=== PATIENT | male | born 1975 | race Caucasian/White ===

== ENCOUNTER 2025-02-24 10:30 | Emergency (ER) | payer OTHER, SELFPAY ==
[2025-02-24 10:31] VITALS: BMI 40.2
[2025-02-24 10:35] VITALS: BP 134/91
[2025-02-24] MEDS: TORADOL 30 MG IM (11:56)
[2025-02-24 12:00] VITALS: BP 134/89
--- NOTE | 2025-02-24 12:22 | ED.GENMED ---
History of Present Illness
General
Chief Complaint: Generalized Pain
Source: patient
Exam Limitations: none
Time Seen by Provider: 02/24/25 11:23
Nursing documentation reviewed up to this point in time: agreed with
History of Present Illness
History of Present Illness:
49-year-old male with past medical history of alcohol abuse, seizures who presents to the emergency department for evaluation of rib pain. Patient reports that yesterday he was intoxicated and had multiple falls from standing. He says he landed on
his ribs and has had left rib pain as well as mid back pain since. He is not sure whether he hit his head or lost consciousness. He denies significant headache or neck pain. He denies any significant abdominal pain. Denies any pain in the
extremities. Denies numbness or weakness in extremities. He is not on a blood thinner. He does note that he has been increasingly depressed recently and requested to speak with someone about his mental health; he denies being actively suicidal.
Of note, patient is currently homeless.
Past History
Past History
ED Past Medical History: Other (ADHD, alcohol and drug use disorder)
ED Past Surgical History: None
Social History
Tobacco: Former smoker
Alcohol: Binge drinker
Personal:
Living: alone
Review of Systems
Review of Systems
All Other Systems: ROS reviewed and negative except as documented in HPI and ROS
Respiratory: Denies trouble breathing
Cardiac: Reports chest pain (Rib pain)
ABD/GI: Denies abdominal pain, nausea or vomiting
: Denies flank pain
Musculoskeletal: Reports back pain; Denies neck pain
Neurological: Denies dizzy or headache
Psychiatric: Reports depression; Denies suicidal
Phy Exam
Physical Exam
Physical Exam:
General: Awake, alert, oriented x3; unkempt but in no acute distress
Head: Normocephalic, atraumatic
Eyes: Conjunctiva normal, EOMI, pupils equal round reactive to light bilaterally
Throat: Airway intact, handling secretions
Neck: Trachea midline, no cervical spine tenderness, full range of motion in cervical spine
Lungs: Clear to auscultation bilaterally, no wheezing, rales, rhonchi
Heart: Regular rate and rhythm, no murmurs, gallops, or rubs; patient has left chest wall tenderness but no crepitus, no bruising
Abd: Soft, non distended, nontender, no bruising
Back: No signs of trauma the back or flank, some mild left posterior rib tenderness and some midthoracic tenderness in the paraspinal region but no lumbar tenderness
Neuro: Cranial nerves grossly intact, speech fluid, no gross motor or sensory deficits
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
Extremities: Atraumatic, moving all extremities without pain, warm and well-perfused
Psych: 'Depressed' mood, normal affect
Scores
Heart Failure Risk
Heart Failure Risk Score: Not Applicable
Heart Score for Chest Pain Patients
STEMI patient?: Not applicable
Withdrawal Assessment of Alcohol
Withdrawal Assessment Completed?: Not applicable
Course
Orders/Labs/Results
Orders:
Orders
02/24/25 11:32
CT Chest W/o Iv Contrast Urgent
Comment:
Reason For Exam: left chest wall and mid back pain
02/24/25 11:33
CT Head W/o Iv Contrast Urgent
Comment:
Reason For Exam: multiple falls while intoxicated
Crisis Consult Routine
Reason for Consult: depression
Ketorolac [Toradol] 30 mg IM NOW STA
02/24/25 12:24
Electrocardiogram (*1) Urgent
Reason for Study: Chest Pain
EKG- Treatment ONCE
Vital Signs
Initial and Last Documented VS:
Initial Vital Signs
Temp Pulse Resp BP Pulse Ox
36.7 C 100 16 134/91 98
02/24/25 10:35 02/24/25 10:35 02/24/25 10:35 02/24/25 10:35 02/24/25 10:35
Last Documented Vital Signs
Temp Pulse Resp BP Pulse Ox
36.7 C 92 20 134/89 99
02/24/25 10:35 02/24/25 12:00 02/24/25 12:00 02/24/25 12:00 02/24/25 12:00
MDM/Problems Addressed
Differential Diagnosis Includes:
Rib fracture, hemothorax, pneumothorax, bruised ribs/chest wall contusion, vertebral fracture
MDM/Problems Addressed:
49-year-old male presents for evaluation after falls while intoxicated yesterday complaining of left-sided chest wall/rib pain. Vitals and exam as above. Will plan to check CT of the head given multiple falls we will intoxicated. Will check CT of
the chest to evaluate for any signs of rib fractures, pneumothorax/hemothorax as well as to evaluate thoracic vertebrae. Will check screening EKG although chest wall pain convincingly reproducible to palpation. Treat pain. Patient did express
some concerns about his mental health although he is not acutely suicidal�case was discussed with our fuller brush worker to assess and provide resources. He does have a history of alcohol use�not yet ready for rehab/cessation.
CT head negative for any acute abnormalities. CT chest shows fractures left ribs subacute although suspect based on repeat falls yesterday he may have exacerbated this issue or have some acute component. No pneumothorax or hemothorax. No other
acute posttraumatic abnormalities. Pain well-controlled here patient sleeping comfortably without any distress. Stable vital signs throughout ED visit. He did speak with our fuller brush worker and was provided resources for mental health assistance.
Stable for discharge.
Chronic conditions affecting care:
Alcohol use
*Radiology
Radiology exam reviewed: radiology read reviewed
*Pulse Oximetry
Patient hypoxic: no
*EKG
Interpreted by ED Provider?: Yes
Heart Rate: 80
Rate: normal
Rhythm: sinus
[place]: left axis deviation
Interval: normal interval
QRS Pattern: wide non-specific
Ischemia: no ischemia
*Critical Care Note
Total Time (30-74mins, 75-104mins- exclusive of procedures): Not Applicable
Data Reviewed
Review of Other/Old Records Reveals: Records
Source: patient and records
Patient Management
Social determinants of health affecting care: Living situation and Substance abuse (Alcohol abuse)
ED Attending Note
-
Portions of this chart may have been created with voice recognition software.� Occasional wrong word or��sound alike� substitutions may have occurred due to the inherent limitations of voice recognition software.
Discharge Plan
Departure
Patient Disposition: Home (Routine Discharge)
Date of Disposition: 02/24/25
Time of Disposition: 14:28
Patient with high blood pressure during this ER visit?: No
Discharge Problem:
Fall, Fracture of rib
Instructions: Rib fracture or bruised rib - ED discharge instructions
Prescriptions:
New
lidocaine 5 % adhesive patch,medicated
1 patch topical DAILY Qty: 15 0RF
ibuprofen 400 mg tablet
400 mg PO Q6H PRN (Reason: Pain) Qty: 30 0RF
No Action
duloxetine [Cymbalta] 60 mg Capsule,Delayed Release(Dr/Ec)
60 mg PO DAILY
hydroxyzine HCl 25 mg tablet
25 mg PO QID PRN (Reason: itching/anxiety) Qty: 30 0RF
Wellbutrin
1 tab PO DAILY
Referrals:
Rabia Norwood CRNP [Family Provider, General] - Follow up in 1 week
Activity Restrictions/Additional Instructions:
Thank you for visiting the Emergency Department at [facility].
1. Please schedule a follow up appointment as directed. Call first thing tomorrow morning to make an appointment.
2. If indicated, please take your medications as instructed and indicated on discharge paperwork.
3. If any of your symptoms do not improve, or persist, or become more severe within 6-12 hours, please return to the emergency department for further care.
4. Please return to the emergency department if you develop a headache, neck pain/stiffness, fever greater than 100.4F, chest pain, shortness of breath, persistent nausea, vomiting, slurred speech, difficulty walking, numbness/tingling, weakness,
signs of infection or any other symptoms that are worrisome to you.
Please call [phone] if you have any questions.
Interventions
Interventions:
*Risk Screen - Suicide Last Done: 02/24/25 10:35
*General Assessment Last Done: 02/24/25 11:11
*Neglect/Abuse Screening Last Done: 02/24/25 10:35
*ED- Fall Risk Assessment Last Done: 02/24/25 11:11
Discharge Date and Time
Print Language: MONGOLIAN
[2025-02-24 14:43] VITALS: BP 138/78
== END 2025-02-24 14:43 | disposition home or self-care (01) ==
LOC: EMR 10:30
PROVIDERS: EMERGENCY PHYSICIAN Emergency Medicine; FAMILY PHYSICIAN Nurse Practitioner Adult Health
DX: S22.42XA Multiple fractures of ribs, left side, initial encounter for closed fracture (principal); W19.XXXA Unspecified fall, initial encounter; R29.6 Repeated falls; Z87.891 Personal history of nicotine dependence; Z59.00 Homelessness unspecified
CPT/HCPCS: 99285; 96372; 70450; 71250; 93005

== ENCOUNTER 2025-03-17 09:38 | Inpatient (IN) | payer OTHER, SELFPAY ==
[2025-03-17] VITALS (10 sets, daily range): BP systolic 115–148; BP diastolic 65–106; BMI 40.8; BMI 39.9
[2025-03-17] MEDS: ATIVAN 2 MG IV ×3 (03:10→07:59)
[2025-03-17 03:29] LABS: Hematocrit 44.8 % (39.0-52.0); Hemoglobin 14.9 g/dL (13.0-18.0); Mean Corp Hgb Conc. 33.3 g/dL (33.0-37.0); Mean Corpuscular Volume 84.8 fL (80.0-94.0); Nucleated Red Blood Cells % 0 % (-); Platelet Count 420 10^3/uL (130-400); Red Cell Dist. Width 14.2 % (11.5-14.5)
[2025-03-17 03:53] LABS: ALT (SGPT) 48 U/L (0-50); AST (SGOT) 42 U/L (17-59); Albumin 4.5 g/dl (3.5-5.0); Alkaline Phosphatase 82 U/L (38-126); Blood Urea Nitrogen 15 mg/dl (9-20); Calcium 9.8 mg/dl (8.4-10.2); Carbon Dioxide 24 mmol/L (22-30); Chloride 107 mmol/L (98-107); Estimated Creatinine Clearance > 125 ml/min; Glucose 101 mg/dl (70-99); Potassium 4.6 mmol/L (3.5-5.1); Sodium 141 mmol/L (135-145); Total Protein 7.8 g/dl (6.3-8.2); eGFR > 60.00
[2025-03-17] MEDS: ZOFRAN 4 MG IV (05:02)
[2025-03-17] MEDS: ATIVAN 1 MG IV (06:25)
--- NOTE | 2025-03-17 06:25 | ED.GENMED ---
History of Present Illness
General
Chief Complaint: Alcohol Problem
Source: patient
Time Seen by Provider: 03/17/25 05:27
Nursing documentation reviewed up to this point in time: agreed with
History of Present Illness
History of Present Illness:
Note:
CHIEF COMPLAINT(S)
Request for assistance with alcohol use.
HISTORY OF PRESENT ILLNESS
The patient is a 49-year-old male who presents with a request for assistance with alcohol use. He reports last drinking alcohol approximately 30 hours prior to arrival. The patient describes a history of significant alcohol consumption, which he has
engaged in for several years. He reports experiencing seizures during withdrawal, indicating a history of alcohol withdrawal seizures. The patient mentioned previously receiving treatment for alcohol use at the [facility]. He is currently
experiencing symptoms that he associates with withdrawal and expresses a need for medication, specifically lorazepam (Ativan), to manage his current condition. He has been provided with a banana bag to replenish nutrients.
SOCIAL DETERMINANTS AFFECTING HEALTH
The patient is a and is currently on disability. 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 The patient has indicated a desire to return to work once he manages his alcohol use.
SOCIAL HISTORY
The patient reports smoking of a non-specified substance occasionally. He does not provide specifics regarding frequency or type of substance used.
MEDICATIONS
The patient reports taking medications for depression and post-traumatic stress disorder (PTSD). Specific medications were not named in the conversation.
PLAN
1. Administer lorazepam (Ativan) as needed to manage withdrawal symptoms.
2. Provide a banana bag to address nutritional deficiencies.
3. Arrange for the patient to be admitted for management of alcohol withdrawal.
4. Plan for follow-up and continued treatment at the [facility].
DIFFERENTIAL DIAGNOSIS
The Differential Diagnosis includes, in no particular order and is not limited to:
1. Alcohol withdrawal syndrome
2. Seizure disorder secondary to alcohol withdrawal
3. Alcohol use disorder
4. Depression
5. Post-traumatic stress disorder (PTSD)
6. Anxiety disorder
7. Nutritional deficiencies
8. Neurological symptoms secondary to alcohol use
9. Sleep disturbances related to alcohol use
10. Generalized anxiety disorder
Disposition:
SUMMARY OF ENCOUNTER
The patient is a 49-year-old male who presented with a request for assistance with alcohol withdrawal, including a history of withdrawal seizures. He last consumed a pint of vodka approximately 30 hours prior to arrival. Due to historical
alcohol withdrawal seizures, he was seen by emergency services with a request to be admitted for observation and management. The patient has previously been treated for alcohol use at the [facility]. During the visit, he was administered lorazepam
(Ativan) to manage withdrawal symptoms and prevent seizures. He did not experience any seizures while in the emergency department and maintained stability.
DISPOSITION
The patient will be admitted to the hospital for ongoing management and observation of alcohol withdrawal.
ASSESSMENT
The patient is experiencing alcohol withdrawal syndrome with a history of withdrawal seizures.
EMERGENCY TREATMENTS ADMINISTERED
Lorazepam (Ativan) was administered for withdrawal symptoms.
PLAN
1. Administer lorazepam (Ativan) as needed for withdrawal management.
2. Admit to the hospital for observation and management of alcohol withdrawal.
3. Coordination for follow-up care with [facility].
MEDICATION RECONCILIATION
1. Lorazepam (Ativan) was administered during the encounter for management of withdrawal symptoms.
MEDICAL DECISION MAKING
-Complexity of Data Reviewed: Chronic conditions affecting care include alcohol use disorder, seizure disorder secondary to alcohol withdrawal, depression, and PTSD. Differential diagnosis includes alcohol withdrawal syndrome, seizure disorder
secondary to alcohol withdrawal, alcohol use disorder, depression, PTSD, anxiety disorder, nutritional deficiencies, neurological symptoms secondary to alcohol use, sleep disturbances related to alcohol use, and generalized anxiety disorder.
-Data:
Category 1:
The attending team attempted to coordinate a hospital transfer to the [facility] for continuity of care during the holiday weekend but was unable due to timing.
Category 3:
Discussion of management with emergency services and hospital services regarding admission for alcohol withdrawal management.
-Risk: Admission was determined due for the management of withdrawal symptoms and prevention of seizures, with lorazepam administration indicating a need for close monitoring and specialized care due to potential morbidity associated with alcohol
withdrawal seizures.
DIAGNOSIS
1. Alcohol withdrawal syndrome - ICD-10 F10.239
2. Seizure disorder secondary to alcohol withdrawal - ICD-10 G40.509
3. Alcohol use disorder, severe - ICD-10 F10.20
Past History
Past History
ED Past Medical History: Other (ADHD, alcohol and drug use disorder)
ED Past Surgical History: None
Social History
Tobacco: Former smoker
Alcohol: Binge drinker
Personal:
Living: alone
Phy Exam
General Physical Exam
General Presentation: well appearing and no apparent distress
General Skin: warm and dry
General Habitus: normal
General Mental: alert
General Hydration: appears well hydrated
ENT Exam
ENT Exam: EOMI, pharynx normal, neck supple and normocephalic
Eye Exam
Eye Exam: PERRL, cornea clear and conjunctiva normal
Cardiovascular Exam
Cardiovascular Exam: regular rate/rhythm, no edema, no murmur and normal peripheral pulses
Pulmonary Exam
Pulmonary Exam: lungs clear, no respiratory distress, no rales, no crackles, no rhonchi, no stridor, no wheezing and no cough
Gastrointestinal Exam
Gastrointestinal Exam: normal bowel sounds, non tender, soft, no organomegaly, no pulsatile mass and non distended
Neurological Exam
Neurological Exam: alert, oriented x3, no motor deficits, speech normal and other (Slight resting tremor)
Musculoskeletal Exam
Musculoskeletal Exam: full ROM and no edema
Skin Exam
Skin Exam: normal color, warm/dry, no rash and no petechia
Psychiatric Exam
Psychiatric Exam: normal mood/affect
Scores
Withdrawal Assessment of Alcohol
Withdrawal Assessment Completed?: Yes
Nausea and Vomiting: Mild nausea with no vomiting
Tactile Disturbances: Mild itching, pins and needles, burning or numbness
Tremor: Not visible, but can be felt fingertip to fingertip
Auditory Disturbances: Not present
Paroxysmal Sweats: Beads of sweat obvious on forehead
Visual Disturbances: Not present
Anxiety: Mild anxiety
Headache, Fullness in Head: Not present
Agitation: Moderately fidgety and restless
Orientation and clouding of sensorium: Oriented and can do serial additions
Total CIWA Score: 13
Alcohol Withdrawal Medication Recommendation: Equal to MSAS Score 5-7. Lorazepam 1mg IV or PO NOW & re-assess q2hrs
Course
Orders/Labs/Results
Orders:
Orders
03/17/25 03:06
Alcohol Urgent
Complete Blood Count/With Diff Urgent
Comprehensive Metabolic Panel Urgent
Magnesium Urgent
Comment: ADD ON
Phosphorus Urgent
Comment: ADD ON
03/17/25 03:09
Lorazepam [Ativan] 2 mg .ROUTE .STK-MED ONE
03/17/25 03:10
Lorazepam [Ativan] 2 mg IV NOW STA
03/17/25 04:58
Ondansetron Injectable [Zofran] 4 mg .ROUTE .STK-MED ONE
03/17/25 04:59
Lorazepam [Ativan] 2 mg .ROUTE .STK-MED ONE
03/17/25 05:00
Lorazepam [Ativan] 2 mg IV NOW STA
03/17/25 05:01
Ondansetron Injectable [Zofran] 4 mg IV NOW STA
03/17/25 Breakfast
Regular
At Your Request: Full Participation
Does patient need a safe tray?: No
0.9% Sodium Chloride 1000 ml [Nss] 1,000 ml Mvi, Adult [Multivitamin] 10 ml Thiamine Injection 100 mg IV 250 mls/hr
03/17/25 06:25
Lorazepam [Ativan] 1 mg IV NOW STA
03/17/25 06:27
Lorazepam [Ativan] 1 mg IV NOW STA
03/17/25 07:56
Lorazepam [Ativan] 2 mg IV NOW STA
03/17/25 09:12
0.9% Sodium Chloride [Nss (Preservative Free)] See Protocol IV PRN PRN
FOLic ACID [Folvite] 1 mg 0.9% Sodium Chloride 50 ml [Nss] 50 ml IV DAILYPRN
Lorazepam [Ativan] 1 mg PO Q2HPRN PRN
Lorazepam [Ativan] 2 mg IV Q1HPRN PRN
03/17/25 09:13
Case Management Consult Once
Case Management Consult: Other
Comment: Substance abuse counseling
DIETARY IP CONSULT Routine
Reason for Consult: Nutrition support, possible refeeding guidelines
MSAS SCORE As Directed
MSAS Score 0-4: Repeat MSAS every 2 hours until 0-4 for three consecutive assessments, then every 4 hours x 48
hours.
MSAS Score 5-7: For MILD withdrawl symptoms. Repeat MSAS and RASS every 2 hours
MSAS Score 8-11: For MODERATE withdrawal symptoms. Repeat MSAS and RASS every 1 hour. Consider ICU or IMU
level of care.
MSAS Score > 11: For SEVERE withdrawal symptoms. Repeat MSAS and RASS every 1 hour. Notify provider, consider
ICU level of care.
MSAS Additional Instructions: If no improvement or no decrease in score from severe to moderate within 12
hours, consult psychiatry
MSAS Notify Provider: Notify provider if patient requires more than 10 mg of Lorazepam in eight hour period.
03/17/25 09:14
Add On- LAB Urgent
Tests Added?: magnesium,phosphorus
03/17/25 09:15
Admit/Transfer Patient As Directed
Co-Sign Provider:
Level of Care: Inpatient admission
Assign to:: Telemetry
Physician / Group: eric adler
Diagnosis: alcohol withrawal
Reason for Telemetry: Arrhythmia
Date to Stop Telemetry: 03/20/25
Time to Stop Telemetry: 11:00
Reason for Hospitalization: alcohol withrawal
Expected length of stay greater than two midnights?: Yes
ELOS- Estimated Length of Stay in days: 3
I certify the patient meets the requirements for IP care: Yes
PRN Pain Medication Management As Directed
May give lesser potent ordered pain med per pt: Yes
preference::
Protocol:: Medication orders for pain may be administered in a
manner that supports deferring to patient preference
when the pt is:
- Requesting an ordered lesser potent pain medication.
Least to most potent pain medications are defined
as: acetaminophen < NSAID < tramadol < opioids
(morphine, oxycodone, hydromorphone).
- Requesting a lesser dose of the same medication IF
ORDERED.
- Requesting a less intrusive route of administration
if both routes are prescribed by the provider (PO <
IV).
03/17/25 09:16
Code Status As Directed
Resuscitation Status: Full Code
03/17/25 09:18
EKG [Electrocardiogram (*1)] Stat
Reason for Study: QTc Monitoring
03/17/25 09:45
Lorazepam [Ativan] 1 mg PO Q1HPRN PRN
03/17/25 10:00
FOLic ACID [Folvite] 1 mg PO DAILY
03/17/25 11:16
0.9% Sodium Chloride 1000 ml [Nss] 1,000 ml IV 100 mls/hr
Bisacodyl [Dulcolax] 10 mg RECTAL [id number] PRN
Docusate W/Senna [Senokot-S] 1 tablet PO BIDPRN PRN
Duloxetine Delayed Release [Cymbalta Delayed Release] 120 mg PO DAILY
Ondansetron Injectable [Zofran] 4 mg IV Q6HPRN PRN
Pantoprazole [Protonix] 40 mg PO DAILY
Polyethylene Glycol Powder [Miralax] 17 grams PO DAILYPRN PRN
03/17/25 11:16
Activity As Directed
Activity Level: As Tolerated
Vital Signs As Directed
Frequency: Per unit guidelines
Pulse Ox/spot Check [RESP] Routine
Quantity: 1
DX Deep Vein Thrombosis Video Routine
03/17/25 13:15
Phenobarbital Sodium [Phenobarbital] 260 mg 0.9% Sodium Chloride 100 ml [Nss] 100 ml IV ONCE
03/17/25 16:00
Gabapentin [Neurontin] 400 mg PO TID
Thiamine Injection 200 mg IV Q8
03/17/25 18:00
Enoxaparin Sodium [Lovenox] 40 mg SC QPM
03/17/25 22:00
Phenobarbital Sodium [Phenobarbital] 97.5 mg IV TID
03/18/25 07:27
Complete Blood Count/With Diff IN AM
Comprehensive Metabolic Panel IN AM
Magnesium IN AM
Phosphorus IN AM
03/19/25 06:45
Complete Blood Count/With Diff IN AM
Comprehensive Metabolic Panel IN AM
03/19/25 22:00
Phenobarbital [Luminal] 64.8 mg PO TID
03/20/25 06:00
Complete Blood Count/With Diff IN AM
Comprehensive Metabolic Panel IN AM
03/20/25 11:00
DC Protocol for Telemetry ONCE
03/20/25 20:00
Thiamine HCl [Vitamin B1] 100 mg PO BID
03/21/25 06:00
Complete Blood Count/With Diff IN AM
Comprehensive Metabolic Panel IN AM
03/21/25 22:00
Phenobarbital [Luminal] 32.4 mg PO TID
03/22/25 06:00
Complete Blood Count/With Diff IN AM
Comprehensive Metabolic Panel IN AM
03/23/25 06:00
Complete Blood Count/With Diff IN AM
Comprehensive Metabolic Panel IN AM
Abnormal Lab Results
03/17/25
03:06
Plt Count 420 H 10^3/uL
(130-400)
MPV 10.7 H fL
(7.4-10.4)
Absolute Monos (auto) 0.7 H 10^3/uL
(0.1-0.6)
Glucose 101 H mg/dl
(70-99)
Magnesium 1.5 L mg/dl
(1.6-2.3)
03/17/25 03:06
03/17/25 03:06
Vital Signs
Initial and Last Documented VS:
Initial Vital Signs
Temp Pulse Resp BP Pulse Ox
98.3 F 126 20 132/106 94
03/17/25 01:53 03/17/25 01:53 03/17/25 01:53 03/17/25 01:53 03/17/25 01:53
Last Documented Vital Signs
Temp Pulse Resp BP Pulse Ox
97.4 F 68 14 119/74 94
03/19/25 19:26 03/19/25 19:26 03/19/25 19:26 03/19/25 19:26 03/19/25 19:26
*Pulse Oximetry
SaO2: 97
Oxygen Mode of Delivery: Room air
Patient hypoxic: no
*Critical Care Note
Total Time (30-74mins, 75-104mins- exclusive of procedures): Not Applicable
ED Attending Note
-
Portions of this chart may have been created with voice recognition software.� Occasional wrong word or��sound alike� substitutions may have occurred due to the inherent limitations of voice recognition software.
Discharge Plan
Departure
Patient Disposition: Admit
Date of Disposition: 03/17/25
Time of Disposition: 06:27
Admit to: Telemetry
Presentation/result/management discussed w/ accepting MD/DO: Hospitalist
Discharge Problem:
Alcoholism, Alcohol withdrawal
Interventions
Interventions:
*Risk Screen - Suicide Last Done: 03/17/25 01:53
*General Assessment Last Done: 03/17/25 01:53
*Neglect/Abuse Screening Last Done: 03/17/25 01:53
*ED- Fall Risk Assessment Last Done: 03/17/25 01:53
*ED COVID-19 Vaccine History Last Done: 03/17/25 01:53
*Nursing Disposition Last Done: 03/17/25 09:56
ED- Neurological Assessment Last Done: 03/17/25 03:02
ED-Psychological Assessment Last Done: 03/17/25 03:02
Discharge Date and Time
Discharge Date/Time: 03/17/25 11:09
[2025-03-17] MEDS: MULTIVITAMIN 1011 ML IV (06:26)
[2025-03-17] MEDS: MULTIVITAMIN 1011 MG IV (06:26)
--- NOTE | 2025-03-17 09:18 | HPS.HSE ---
Family Physician
-
Family Physician: NOT KNOW UNKNOWN - PT DOES
Chief Complaint
-
Alcohol withdrawal
History of Present Illness
49-year-old male with past medical history of morbid obesity, sleep apnea, depression, history of seizure secondary to alcohol withdrawal came to the hospital with alcohol abuse with withdrawal. Patient has tried alcohol rehab before and was very
helpful. Recently he relapsed few months ago and has been drinking a lot. Last drink was 03/16. Currently denies any chest pain, shortness of breath, abdominal pain, nausea, vomiting, diarrhea, constipation. Does have history of seizure from
alcohol withdrawal however not on any medications.
Medical History
Past Medical History
Past Medical History: Reports Psychiatric (Depression) and Other (History of seizure)
Past Surgical History: Reports None
Social History
Tobacco: Former Smoker
Alcohol: Binge drinker
Family History
Family History: Not pertinent
Allergies / Home Medications
Allergies reflects when Allergies were last updated in [employer].
Home Medications with original date entered in [employer]
Allergy/Medication List:
Allergies
Allergy/AdvReac Type Severity Reaction Status Date / Time
levetiracetam (From [facility]) Allergy Anaphylaxis Verified 03/17/25 01:53
Home Medications
duloxetine 60 mg capsule,delayed release (Cymbalta) 120 mg PO DAILY Neurological Condition 04/12/23
hydroxyzine HCl 25 mg tablet 25 mg PO QID PRN itching/anxiety #30 tabs 04/12/23
gabapentin 400 mg tablet 400 mg PO TID 03/17/25
pantoprazole 40 mg tablet,delayed release (Protonix) 40 mg PO DAILY 03/17/25
Review of Systems
-
History Source: Patient
A 12 point ROS was completed and negative except as noted: Yes
Psych: Reports Anxiety
Physical Exam
Vital Signs
Vital Signs
Temp Pulse Resp BP Pulse Ox
98.1 F 110 22 125/85 96
03/17/25 05:50 03/17/25 07:44 03/17/25 07:44 03/17/25 07:44 03/17/25 07:44
Physical Exam
General: No Apparent Distress and Comfortable
HEENT: Anicteric and Moist mucous membranes
Respiratory: Clear and Non Labored Respirations; No Wheezes
Cardiac: S1/S2, Regular Rhythm and Tachycardia
Breast: Deferred by me
GI: Soft, Non Tender and Non Distended
Genito-urinary: No Mcpherson
Musculoskeletal: No Edema
Neuro: Awake, Alert, Oriented and AO x 3
Psych: Calm and Intact Judgment/Insight
Laboratory Results
-
03/17/25 03:06
03/17/25 03:06
Laboratory Results
Total Bilirubin 0.4 mg/dl (0.2-1.3) 03/17/25 03:06
AST 42 U/L (17-59) 03/17/25 03:06
ALT 48 U/L (0-50) 03/17/25 03:06
Alkaline Phosphatase 82 U/L (38-126) 03/17/25 03:06
Data Reviewed
-
Lab Data: Labs Reviewed by me and Discussed with Patient
Impression/Plan
-
Alcohol withdrawal
Alcohol use with abuse
Start phenobarbital, Ativan as needed per withdrawal protocol
MSAS
Fluids
B cares, agreeable on rehab
Hypomagnesemia
Replete
History of seizure disorder
Not on any antiepileptics
Depression
Cymbalta
hx of GERD
PPI
History of anxiety
DVT prophy
Lovenox
Full code
[2025-03-17 09:48] LABS: Magnesium 1.5 mg/dl (1.6-2.3)
--- NOTE | 2025-03-17 09:55 | EDRN ---
this RN called the receiving unit and notified them that paper report was going to be tubed up
--- NOTE | 2025-03-17 11:11 | CM ---
CM following re: discharge planning.
CM consulted for substance abuse counseling.
Reviewed pt's chart, met with pt.
Pt is a 49 year old male, admitted with primary dx of Alcohol withdrawal syndrome.
Pt reports he has been living on and off in the [facility] in [facility] for the past 2 years, his immediate family lives in [place], has no children. Pt reports he is [employer] , served 5 years, enrolled with [employer] for benefits. Pt
reports he PCP from [facility] and he is getting meds from [facility]. Pt repprts his SSD pays fror his staying in the hotel. Pt admitted to significant h/o alcohol abuse, has been drinking heavily for past years. Drink of choice - vodka and per pt
he has been drinking 1.75 L of vodka daily. Pr stated he realized his alcohol addiction and he decided to go to [facility] in [place], [place] to inpatient residential D&A rehab. Pt reports he met with [employer] new accounts representative last night and she is
working on getting him to [facility] in [place], [place] to inpatient D&A rehab.
[facility] printed information given to the pt and pt confirmed he has a strong desire to get help and will go to inpatient D&A rehab at [facility] in [facility].
PCP and pharmacy - [facility].
D/C plan: Inpatient D&A rehab at [facility] in [facility].
CM will follow to assit pt with discharge to inpatient D&A rehab at [facility] in [place], [place]
[2025-03-17] MEDS: FOLVITE 1 MG PO (11:28)
[2025-03-17] MEDS: ATIVAN 1 MG PO ×3 (11:28→22:03)
[2025-03-17] MEDS: CYMBALTA DELAYED RELEASE 120 MG PO (11:51)
[2025-03-17] MEDS: PROTONIX 40 MG PO (11:51)
[2025-03-17] MEDS: NSS 1000 IV ×2 (11:52→21:39)
[2025-03-17] MEDS: PHENOBARBITAL 104 MG IV (13:25)
[2025-03-17] MEDS: MAGNESIUM SULFATE 50 IV (13:39)
[2025-03-17] MEDS: NEURONTIN 400 MG PO ×2 (16:17→21:22)
[2025-03-17] MEDS: LOVENOX 40 MG SC (16:17)
[2025-03-17] MEDS: THIAMINE INJECTION 200 MG IV (16:18)
[2025-03-17] MEDS: PHENOBARBITAL 97.5 MG IV (21:26)
[2025-03-18] MEDS: THIAMINE INJECTION 200 MG IV ×4 (00:05→23:48)
[2025-03-18 02:53] VITALS: BP 102/65
[2025-03-18] MEDS: ATIVAN 1 MG PO ×5 (06:29→23:53)
[2025-03-18 07:27] VITALS: BP 128/76
[2025-03-18] MEDS: NSS 1000 IV (07:34)
[2025-03-18] MEDS: CYMBALTA DELAYED RELEASE 120 MG PO (07:34)
[2025-03-18] MEDS: NEURONTIN 400 MG PO ×3 (07:34→21:15)
[2025-03-18] MEDS: PROTONIX 40 MG PO (07:34)
[2025-03-18] MEDS: FOLVITE 1 MG PO (07:34)
[2025-03-18] MEDS: PHENOBARBITAL 97.5 MG IV ×3 (07:34→21:18)
[2025-03-18 08:50] LABS: ALT (SGPT) 33 U/L (0-50); AST (SGOT) 30 U/L (17-59); Albumin 3.2 g/dl (3.5-5.0); Alkaline Phosphatase 70 U/L (38-126); Blood Urea Nitrogen 13 mg/dl (9-20); Calcium 8.0 mg/dl (8.4-10.2); Carbon Dioxide 27 mmol/L (22-30); Chloride 110 mmol/L (98-107); Estimated Creatinine Clearance > 125 ml/min; Glucose 87 mg/dl (70-99); Magnesium 2.2 mg/dl (1.6-2.3); Potassium 4.3 mmol/L (3.5-5.1); Sodium 138 mmol/L (135-145); Total Protein 6.0 g/dl (6.3-8.2); eGFR > 60.00
[2025-03-18 08:54] LABS: Hematocrit 39.7 % (39.0-52.0); Hemoglobin 12.7 g/dL (13.0-18.0); Mean Corp Hgb Conc. 32.0 g/dL (33.0-37.0); Mean Corpuscular Volume 87.3 fL (80.0-94.0); Nucleated Red Blood Cells % 0 % (-); Platelet Count 271 10^3/uL (130-400); Red Cell Dist. Width 14.3 % (11.5-14.5)
[2025-03-18] MEDS: TYLENOL 650 MG PO (10:56)
[2025-03-18 11:16] VITALS: BP 116/73
--- NOTE | 2025-03-18 11:58 | W.PN.HOSP.TC ---
Today's Communication/Plan
-
Monitor vital signs see plan
Continue to monitor mental status closely
Monitor MSAS
Continue with phenobarbital
Ativan as needed per alcohol withdrawal score
If symptoms get worse then will need Precedex
Assessment / Plan
Assessment / Plan
General: No Apparent Distress and Comfortable
HEENT: Anicteric and Moist mucous membranes
Respiratory: Clear and Non Labored Respirations; No Wheezes
Cardiac: S1/S2, Regular Rhythm and Tachycardia
Breast: Deferred by me
GI: Soft, Non Tender and Non Distended
Genito-urinary: No Mcpherson
Musculoskeletal: No Edema
Neuro: Awake, Alert, Oriented and AO x 3
Psych: Calm and Intact Judgment/Insight
Alcohol withdrawal
Alcohol use with abuse
cw phenobarbital, Ativan as needed per withdrawal protocol
MSAS; if continues to get worse and has worsening hallucinations concerning for DTs then will start Precedex and will move patient to ICU
Fluids
B cares, agreeable on rehab
Hypomagnesemia
Repleted
History of seizure disorder
Not on any antiepileptics
Abnormal EKG
No prior history of [place], denies any chest pain at this time
Troponin a.m.
If chest pain develops then will need cardiology evaluation inaptient otherwise outpatient is appropriate. Possible stress test outpatient
Depression
Cymbalta
hx of GERD
PPI
History of anxiety
DVT prophy
Lovenox
Full code
Anticipated Discharge: > 48 hours
Subjective/Interval History
-
Date of Service: March 18, 2025
Does report seeing some spots
Objective Data
-
Labs:
Laboratory Results
03/18/25
07:27
WBC 5.2
Hgb 12.7 L
Hct 39.7
Plt Count 271 D
Sodium 138
Potassium 4.3
Chloride 110 H
Carbon Dioxide 27
BUN 13
Creatinine 0.8
Glucose 87
Calcium 8.0 L D
Total Bilirubin 0.4
AST 30
ALT 33
Alkaline Phosphatase 70
Vital Signs:
Vital Signs
Temp Pulse Resp BP Pulse Ox
98.7 F 85 20 116/73 96
03/18/25 11:16 03/18/25 11:16 03/18/25 11:16 03/18/25 11:16 03/18/25 11:16
I&O
03/17/25 03/18/25 03/19/25
06:59 06:59 06:59
Intake Total 540 / 540
Output Total 800 / 800
Balance -260 / -260
[2025-03-18 15:16] VITALS: BP 105/67
[2025-03-18] MEDS: LOVENOX 40 MG SC (17:40)
[2025-03-18 19:34] VITALS: BP 105/64
[2025-03-18 23:30] VITALS: BP 106/67
[2025-03-19] MEDS: NSS 1000 IV ×3 (00:58→14:56)
[2025-03-19] MEDS: ATIVAN 1 MG PO ×6 (03:27→21:18)
[2025-03-19 03:37] VITALS: BP 112/67
[2025-03-19 07:05] LABS: Hematocrit 37.8 % (39.0-52.0); Hemoglobin 12.1 g/dL (13.0-18.0); Mean Corp Hgb Conc. 32.0 g/dL (33.0-37.0); Mean Corpuscular Volume 85.9 fL (80.0-94.0); Nucleated Red Blood Cells % 0 % (-); Platelet Count 263 10^3/uL (130-400); Red Cell Dist. Width 13.8 % (11.5-14.5)
[2025-03-19 07:15] VITALS: BP 144/88
[2025-03-19 07:20] LABS: ALT (SGPT) 27 U/L (0-50); AST (SGOT) 23 U/L (17-59); Albumin 3.1 g/dl (3.5-5.0); Alkaline Phosphatase 71 U/L (38-126); Blood Urea Nitrogen 10 mg/dl (9-20); Calcium 8.3 mg/dl (8.4-10.2); Carbon Dioxide 25 mmol/L (22-30); Chloride 112 mmol/L (98-107); Estimated Creatinine Clearance > 125 ml/min; Glucose 91 mg/dl (70-99); Potassium 4.3 mmol/L (3.5-5.1); Sodium 138 mmol/L (135-145); Total Protein 5.8 g/dl (6.3-8.2); eGFR > 60.00
[2025-03-19] MEDS: THIAMINE INJECTION 200 MG IV ×2 (07:29→14:57)
[2025-03-19] MEDS: FOLVITE 1 MG PO (07:29)
[2025-03-19] MEDS: CYMBALTA DELAYED RELEASE 120 MG PO (07:29)
[2025-03-19] MEDS: PROTONIX 40 MG PO (07:29)
[2025-03-19] MEDS: NEURONTIN 400 MG PO ×3 (07:29→21:18)
[2025-03-19] MEDS: PHENOBARBITAL 97.5 MG IV ×2 (07:29→15:03)
[2025-03-19 07:33] LABS: Troponin I < 0.012 ng/ml
--- NOTE | 2025-03-19 11:53 | W.PN.HOSP.TC ---
Today's Communication/Plan
-
Monitor vital signs and see plan
Continue with phenobarbital, Ativan
Monitor MSAS
Assessment / Plan
Assessment / Plan
General: No Apparent Distress and Comfortable
HEENT: Anicteric and Moist mucous membranes
Respiratory: Clear and Non Labored Respirations; No Wheezes
Cardiac: S1/S2, Regular Rhythm
Breast: Deferred by me
GI: Soft, Non Tender and Non Distended
Genito-urinary: No Mcpherson
Musculoskeletal: No Edema
Neuro: Awake, Alert, Oriented and AO x 3
Psych: Calm and Intact Judgment/Insight
Alcohol withdrawal
Alcohol use with abuse
cw phenobarbital, Ativan as needed per withdrawal protocol
MSAS; if get worse and has worsening hallucinations concerning for DTs then will start Precedex and will move patient to ICU
Fluids
B cares, agreeable on rehab
Hypomagnesemia
Repleted
History of seizure disorder
Not on any antiepileptics
Abnormal EKG
No prior history of [place], denies any chest pain at this time
Trope negative
If chest pain develops then will need cardiology evaluation inaptient otherwise outpatient is appropriate. Possible stress test outpatient
Depression
Cymbalta
hx of GERD
PPI
History of anxiety
DVT prophy
Lovenox
Full code
Anticipated Discharge: 24 - 48 hours
Subjective/Interval History
-
Date of Service: March 19, 2025
Denies pain
Objective Data
-
Labs:
Laboratory Results
03/19/25
06:45
WBC 5.1
Hgb 12.1 L
Hct 37.8 L
Plt Count 263
Sodium 138
Potassium 4.3
Chloride 112 H
Carbon Dioxide 25
BUN 10
Creatinine 0.7
Glucose 91
Calcium 8.3 L
Total Bilirubin 0.3
AST 23
ALT 27
Alkaline Phosphatase 71
Vital Signs:
Vital Signs
Temp Pulse Resp BP Pulse Ox
98.2 F 83 14 144/88 95
03/19/25 07:15 03/19/25 07:15 03/19/25 07:15 03/19/25 07:15 03/19/25 07:15
I&O
03/18/25 03/19/25 03/20/25
06:59 06:59 06:59
Intake Total 540 / 540 720 / 720
Output Total 800 / 800 800 / 800
Balance -260 / -260 -80 / -80
[2025-03-19 12:00] VITALS: BP 143/85
[2025-03-19] MEDS: ATARAX 25 MG PO (13:00)
--- NOTE | 2025-03-19 15:07 | PTCARENOTE ---
patient is saying he feels worse, seeing bugs and spots. MSAS score 8. he says this RN not addressing his withdrawal appropriately and is making him feel no one cares about how he feels. wanted to make sure MD is aware. MD notified and ordered PRN
Atarax. Patient initially refused to take it, stating it does not do anything for him, later agreed and 1 dose given. patient denied having any relief from PRN Ativan PO and Atarax.Called this RN to the room again and said he is thinking about
leaving because he feels he 'isn't a good fit for this hospital'. patient is asking for strong medication that will put him into sleep, 'I want to be knocked out'. This RN educated on MSAS protocol.
[2025-03-19 15:30] VITALS: BP 100/66
[2025-03-19] MEDS: LOVENOX 40 MG SC (17:42)
[2025-03-19 19:26] VITALS: BP 119/74
[2025-03-19] MEDS: LUMINAL 64.8 MG PO (21:18)
[2025-03-20] MEDS: THIAMINE INJECTION 200 MG IV (00:14)
[2025-03-20 00:17] VITALS: BP 122/66
[2025-03-20] MEDS: NSS 1000 IV (01:05)
[2025-03-20] MEDS: ATIVAN 1 MG PO ×2 (01:05→03:55)
[2025-03-20 03:26] VITALS: BP 127/76
--- NOTE | 2025-03-20 05:06 | W.PN.UPDATE ---
Update Note
Progress Note Update
Patient 0x3 wanting to leave AMA now. not delirious, no tremors, no hallucination at this moment. States he only had mild symptoms of withdrawal. Advised rehab, stated he will approach rehab once he is home. Discharge AMA addressed. AMA form signed.
--- NOTE | 2025-03-20 05:23 | PTCARENOTE ---
Patient rang the call [facility] and requested to speak with this nurse. Patient stated that he 'felt a lot better' and 'just had a sudden burst of energy and would like to leave AMA. This nurse asked patient if he would stay for a few more hours, have
breakfast, and speak to the AM provider when they round. Patient refused. Provider notified and at bed side to have patient sign AMA form. This nurse removed patient's IV prior to his departure, VSS. Patient left at approx 5:20 AM.
--- NOTE | 2025-03-20 08:18 | W.DCSUMMARY ---
Discharge Summary
Discharge Data
Date of Admission: 03/17/25
Date of Discharge: 03/20/25
-
Pending Results: Yes
Hospital Course
Discharge diagnosis
Alcohol withdrawal
Hypomagnesemia
49-year-old male with past ministry of depression, anxiety, GERD, seizure disorder, alcohol use with abuse came to the hospital with alcohol withdrawal. Patient was started on phenobarbital along with Ativan per alcohol withdrawal protocol.
Patient also had an abnormal EKG however denied any chest pain. He was instructed to follow-up with cardiology outpatient. On 03/20/2025 patient decided to leave AGAINST MEDICAL ADVICE. Risk was discussed with patient by overnight nurse
practitioner however patient still decided to leave AMA.
Discharge Plan
-
Patient Disposition: Against Medical Advice
Prescriptions:
No Action
duloxetine [Cymbalta] 60 mg Capsule,Delayed Release(Dr/Ec)
120 mg PO DAILY
hydroxyzine HCl 25 mg tablet
25 mg PO QID PRN (Reason: itching/anxiety) Qty: 30 0RF
gabapentin 400 mg Tablet
400 mg PO TID
pantoprazole [Protonix] 40 mg Tablet,Delayed Release (Dr/Ec)
40 mg PO DAILY
Discharge Date and Time
Discharge Date/Time: 03/20/25 06:01
Print Language: OCCITAN
== END 2025-03-20 06:01 | disposition left against medical advice (07) | DRG 894 ==
LOC: 4 WEST ACU 09:38
PROVIDERS: ADMITTING PHYSICIAN Internal Medicine; EMERGENCY PHYSICIAN Student in an Organized Health Care Education/Training Program
DX: F10.239 Alcohol dependence with withdrawal, unspecified (principal); E83.42 Hypomagnesemia; F32.A Depression, unspecified; F41.9 Anxiety disorder, unspecified; K21.9 Gastro-esophageal reflux disease without esophagitis; G40.909 Epilepsy, unspecified, not intractable, without status epilepticus; Z53.29 Procedure and treatment not carried out because of patient's decision for other reasons; E66.01 Morbid (severe) obesity due to excess calories; G47.30 Sleep apnea, unspecified; Z87.891 Personal history of nicotine dependence; Z68.39 Body mass index [BMI] 39.0-39.9, adult; F43.10 Post-traumatic stress disorder, unspecified; F90.9 Attention-deficit hyperactivity disorder, unspecified type; Z79.899 Other long term (current) drug therapy; Z91.85 Personal history of military service
CPT/HCPCS: 80053; 82077; 83735; 84100; 84484; 85025; 93005; 96365; 96366; 96375; 96376; 99284